=== PATIENT | male | born 1965 | race Caucasian/White ===

== ENCOUNTER 2016-09-06 10:39 | Inpatient (IN) | payer OTHER ==
[~2016-09-06] VITALS: Ht 166.4 cm; Wt 54.9 kg
[2016-09-06 11:54] LABS: BASO % 0 % (0-3); EOS % 1 % (0-3); HEMOGLOBIN 14.2 g/dL (13.0-17.5); LYMPH # 15.1 x10^3/uL (1.0-4.8); LYMPH % 76 % (24-48); MEAN CORPUSCULAR HEMOGLOBIN 29 pg (25-35); MEAN CORPUSCULAR HGB CONC 32 g/dL (31-37); MEAN CORPUSCULAR VOLUME 90 fL (79-100); MONO % 3 % (0-9); NEUT % 21 % (31-73); PLATELET COUNT 307 x10^3/uL (140-400); RED BLOOD COUNT 4.89 x10^6/uL (4.30-5.70); RED CELL DISTRIBUTION WIDTH 13.8 % (11.5-14.5)
--- NOTE | 2016-09-06 12:10 | PHYS DOC ---
Past Medical History Past Medical History: No Pertinent History Past Surgical History: Other Additional Past Surgical Histo: L thumb, R arm Additional Information: /2 PAD Alcohol Use: Occasionally Drug Use: Marijuana Adult General Chief Complaint Chief Complaint: WEAKNESS/GENERALIZED HPI HPI Patient is a 51 year old male who presents with 4 days of weakness, decreased bowel movements, lightheadedness dizziness after getting a tick bite on his back. He denies any chest pain shortness of breath nausea vomiting or diarrhea. He denies a rash with a tick was he thinks the tick was on for less than a day and he took it off. She denies any past medical history states he was seen for a study for Alzheimer's and was told his white blood cell count was 33,000. He has not seen any way for this elevated white blood cell count. Review of Systems Review of Systems Constitutional: Denies fever or chills [] Eyes: Denies change in visual acuity, redness, or eye pain [] HENT: Denies nasal congestion or sore throat [] Respiratory: Denies cough or shortness of breath [] Cardiovascular: No additional information not addressed in HPI [] GI: Denies abdominal pain, nausea, vomiting, bloody stools or diarrhea [] : Denies dysuria or hematuria [] Musculoskeletal: Denies back pain or joint pain [] Integument: Denies rash or skin lesions [] Neurologic: Denies headache, focal weakness or sensory changes [] Endocrine: Denies polyuria or polydipsia [] Allergies Allergies Allergies Coded Allergies Type Severity Reaction Last Updated Verified No Known Drug Allergies 09/06/16 No Physical Exam Physical Exam Constitutional: Well developed, well nourished, no acute distress, non-toxic appearance. [] HENT: Normocephalic, atraumatic, bilateral external ears normal, oropharynx moist, no oral exudates, nose normal. [] Eyes: PERRLA, EOMI, conjunctiva normal, no discharge. [] Neck: Normal range of motion, no tenderness, supple, no stridor. [] Cardiovascular:Heart rate regular rhythm, no murmur [] Lungs & Thorax: Bilateral breath sounds clear to auscultation [] Abdomen: Bowel sounds normal, soft, no tenderness, no masses, no pulsatile masses. [] Skin: Warm, dry, 0.5 cm erythematous area on the right lateral flank, no rash. [ ] Back: No tenderness, no CVA tenderness. [] Extremities: No tenderness, no cyanosis, no clubbing, ROM intact, no edema. [] Neurologic: Alert and oriented X 3, normal motor function, normal sensory function, no focal deficits noted. [] Psychologic: Affect normal, judgement normal, mood normal. [] Current Patient Data Vital Signs Vital Signs Date Time Temp Pulse Resp B/P Pulse Ox O2 Delivery O2 Flow Rate FiO2 09/06/16 11:07 97.7 77 16 142/87 99 Room Air 97.7 Lab Values Laboratory Tests Test 09/06/16 11:40 09/06/16 12:20 White Blood Count 20.0x10^3/uL (4.0-11.0) H Red Blood Count 4.89x10^6/uL (4.30-5.70) Hemoglobin 14.2g/dL (13.0-17.5) Hematocrit 44.0% (39.0-53.0) Mean Corpuscular Volume 90fL (79-100) Mean Corpuscular Hemoglobin 29pg (25-35) Mean Corpuscular Hemoglobin Concent 32g/dL (31-37) Red Cell Distribution Width 13.8% (11.5-14.5) Platelet Count 307x10^3/uL (140-400) Neutrophils (%) (Auto) 21% (31-73) L Lymphocytes (%) (Auto) 76% (24-48) H Monocytes (%) (Auto) 3% (0-9) Eosinophils (%) (Auto) 1% (0-3) Basophils (%) (Auto) 0% (0-3) Neutrophils # (Auto) 4.2x10^3uL (1.8-7.7) Lymphocytes # (Auto) 15.1x10^3/uL (1.0-4.8) H Monocytes # (Auto) 0.5x10^3/uL (0.0-1.1) Eosinophils # (Auto) 0.1x10^3/uL (0.0-0.7) Basophils # (Auto) 0.0x10^3/uL (0.0-0.2) Segmented Neutrophils % 24% (35-66) L Band Neutrophils % 1% (0-9) Lymphocytes % 74% (24-48) H Atypical Lymphocytes % (Manual) 1% (0-0) H Platelet Estimate Adequate (ADEQUATE) Prothrombin Time 13.7SEC (11.7-14.0) Prothrombin Time INR 1.1 (0.8-1.1) Sodium Level 143mmol/L (136-145) Potassium Level 4.5mmol/L (3.5-5.1) Chloride Level 102mmol/L (98-107) Carbon Dioxide Level 31mmol/L (21-32) Anion Gap 10 (6-14) Blood Urea Nitrogen 18mg/dL (8-26) Creatinine 0.8mg/dL (0.7-1.3) Estimated GFR (Cockcroft-Gault) 102.3 Glucose Level 86mg/dL (70-99) Calcium Level 9.3mg/dL (8.5-10.1) Magnesium Level 1.9mg/dL (1.8-2.4) Total Bilirubin 0.3mg/dL (0.2-1.0) Direct Bilirubin < 0.1mg/dL (0.0-0.2) Aspartate Amino Transferase (AST) 19U/L (15-37) Alanine Aminotransferase (ALT) 36U/L (16-63) Alkaline Phosphatase 69U/L (46-116) Creatine Kinase 75U/L (39-308) Creatine Kinase MB (Mass) 0.9ng/mL (0.0-3.6) Creatine Kinase MB Relative Index % (0-4) Troponin I Quantitative < 0.017ng/mL (0.000-0.055) ZO-Afq-Z-Type Natriuretic Peptide 15pg/mL (0-124) Total Protein 7.7g/dL (6.4-8.2) Albumin 4.1g/dL (3.4-5.0) Lipase 152U/L (73-393) Thyroid Stimulating Hormone (TSH) 1.765uIU/mL (0.358-3.74) Urine Collection Type Unknown Urine Color Yellow Urine Clarity Clear Urine pH 6.5 Urine Specific [place] <=1.005 Urine Protein Negativemg/dL (NEG-TRACE) Urine Glucose (UA) Negativemg/dL (NEG) Urine Ketones (Stick) Negativemg/dL (NEG) Urine Blood Negative (NEG) Urine Nitrite Negative (NEG) Urine Bilirubin Negative (NEG) Urine Urobilinogen Dipstick 0.2mg/dL (0.2 mg/dL) Urine Leukocyte Esterase Negative (NEG) Urine RBC 0/HPF (0-2) Urine WBC 0/HPF (0-4) Urine Bacteria 0/HPF (0-FEW) Laboratory Tests 09/06/16 11:40 Laboratory Tests 09/06/16 11:40 EKG EKG KG shows normal sinus rhythm with rate of [address] elevations or T- wave inversions, normal axis, [place] interval Radiology/Procedures Radiology/Procedures [facility] [address] [place] [address] IMAGING REPORT Signed PATIENT: KAY MCDANIEL ACCOUNT: [id number] : 1965 LOCATION: ER AGE: 51 SEX: M EXAM STATUS: REG ER ORD. PHYSICIAN: OJY RICK MD REASON: weakness PROCEDURE: PORTABLE CHEST 1V AP chest, 09/06/2016: History: Weakness and fatigue after tic bite The heart size is normal. No pulmonary infiltrates are seen. There is no evidence of pleural fluid. There is an old healed fracture of the right clavicle. IMPRESSION: No acute cardiopulmonary abnormality is detected. DICTATED and SIGNED BY: GRACE GARCIA MD DATE: 09/06/16 1231 CC: JOY RICK MD; HINA RAYMUNDO MD ~ Impressions: Weakness Leukocytosis Course & Med Decision Making Course & Med Decision Making Pertinent Labs and Imaging studies reviewed. 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 We will admit to the hospitalist for further evaluation and treatment. Patient's in stable condition this time. Dragon Disclaimer Dragon Disclaimer This electronic medical record was generated, in whole or in part, using a voice recognition dictation system. Departure Departure Impression: Primary Impression: Weakness Disposition: 09 ADMITTED INPATIENT Admitting Physician: Lucero Waite Condition: STABLE Referrals: HINA RAYMUNDO MD (PCP) JOY RICK MD Sep 06, 2016 12:10
[2016-09-06 12:11] LABS: ANION GAP 10 (6-14); BLOOD UREA NITROGEN 18 mg/dL (8-26); CALCIUM 9.3 mg/dL (8.5-10.1); CARBON DIOXIDE 31 mmol/L (21-32); CHLORIDE 102 mmol/L (98-107); CREATININE 0.8 mg/dL (0.7-1.3); GFR 102.3; GLUCOSE 86 mg/dL (70-99); POTASSIUM 4.5 mmol/L (3.5-5.1); SODIUM 143 mmol/L (136-145)
[2016-09-06 12:14] LABS: ALBUMIN 4.1 g/dL (3.4-5.0); ALK PHOS 69 U/L (46-116); ALT (SGPT) 36 U/L (16-63); AST (SGOT) 19 U/L (15-37); DIRECT BILIRUBIN < 0.1 mg/dL (0.0-0.2); MAGNESIUM 1.9 mg/dL (1.8-2.4); TOTAL BILIRUBIN 0.3 mg/dL (0.2-1.0); TOTAL PROTEIN 7.7 g/dL (6.4-8.2)
[2016-09-06 12:16] LABS: INR 1.1 (0.8-1.1); PROTHROMBIN TIME PATIENT 13.7 SEC (11.7-14.0)
[2016-09-06 12:22] LABS: CKMB MASS 0.9 ng/mL (0.0-3.6); CREATINE KINASE 75 U/L (39-308)
[2016-09-06 12:32] LABS: BILIRUBIN,URINE NEGATIVE (NEG); GLUCOSE,URINE NEGATIVE (NEG); NITRITE,URINE NEGATIVE (NEG); PH,URINE 6.5; PROTEIN,URINE NEGATIVE (NEG-TRACE); UROBILINOGEN,URINE 0.2 mg/dL (0.2 mg/dL)
--- NOTE | 2016-09-06 12:34 | RAD ---
AP chest, 09/06/2016: History: Weakness and fatigue after tic bite The heart size is normal. No pulmonary infiltrates are seen. There is no evidence of pleural fluid. There is an old healed fracture of the right clavicle. IMPRESSION: No acute cardiopulmonary abnormality is detected.
[2016-09-06 12:41] LABS: BACTERIA,URINE 0 /HPF (0-FEW); RBC,URINE 0 /HPF (0-2); WBC,URINE 0 /HPF (0-4)
[2016-09-06 13:07] LABS: PLT ESTIMATE ADEQUATE (ADEQUATE)
--- NOTE | 2016-09-06 13:54 | EKG ---
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
--- NOTE | 2016-09-06 13:56 | EKG ---
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 RI6.01 Unconfirmed report No previous ECG available for comparison Electronically Signed On 09-11-2016 13:35:51 [employer] by Jordin Sears
[2016-09-06 16:00] VITALS: BP 132/82
[2016-09-06] MEDS ORDERED: ACETAMINOPHEN 500 MG TABLET PO PRN (16:30)
[2016-09-06] MEDS ORDERED: DIPHENHYDRAMINE HCL 25 MG CAPSULE PO PRN (16:30)
[2016-09-06] MEDS ORDERED: ONDANSETRON PF 4 MG/2 ML VIAL. IV PRN (16:30)
[2016-09-06] MEDS ORDERED: IBUPROFEN 600 MG TABLET. PO PRN (16:30)
[2016-09-06 19:52] VITALS: BP 110/78
[2016-09-06 23:32] VITALS: BP 104/70
[2016-09-07 03:06] VITALS: BP 110/73
[2016-09-07 04:40] LABS: BASO % 0 % (0-3); EOS % 1 % (0-3); HEMATOCRIT 42.4 % (39.0-53.0); LYMPH # 15.4 x10^3/uL (1.0-4.8); LYMPH % 73 % (24-48); MEAN CORPUSCULAR HEMOGLOBIN 29 pg (25-35); MEAN CORPUSCULAR HGB CONC 33 g/dL (31-37); MEAN CORPUSCULAR VOLUME 89 fL (79-100); MONO % 3 % (0-9); NEUT % 23 % (31-73); PLATELET COUNT 297 x10^3/uL (140-400); RED BLOOD COUNT 4.77 x10^6/uL (4.30-5.70); RED CELL DISTRIBUTION WIDTH 13.3 % (11.5-14.5); WHITE BLOOD COUNT 21.1 x10^3/uL (4.0-11.0)
[2016-09-07 04:55] LABS: CALCIUM 8.8 mg/dL (8.5-10.1); CREATININE 0.8 mg/dL (0.7-1.3); GFR 102.3; POTASSIUM 4.3 mmol/L (3.5-5.1)
[2016-09-07 07:00] VITALS: BP 122/80
[2016-09-07 10:44] VITALS: BP 114/92
[2016-09-07] MEDS ORDERED: NICOTINE POLACRILEX 2MG GUM PACKAGE of 12. BC PRN (10:45)
[2016-09-07] MEDS ORDERED: ONDANSETRON PF 4 MG/2 ML VIAL. IV PRN (10:45)
--- NOTE | 2016-09-07 10:50 | PDOC1 ---
History and Physical Date of Admission Date of Admission DATE: 09/07/16 TIME: 10:44 Identification/Chief Complaint Chief Complaint easy fatigability, no energy Source Source: Caregiver, Chart review, Patient History of Present Illness History of Present Illness 51 y/.o male who does not take any meds at home, prev healthy but is a heavy smoker, was concerned he had a tick bite so went to ER, He complians of easy fatigability, no energy, sleeping all the time, and unintentional weight loss (not much) even BEFORE the tick bite, He shows me the tick bit at his back. BUt his labs show WBC 20 with predom of lymphocytes, and he claims he went to a bloood test not too long ago and they refused him bec his WBC was 30K , Denies blood dyscrasia in family Past Medical History Cardiovascular: No pertinent hx Pulmonary: No pertinent hx GI: No pertinent hx Heme/Onc: No pertinent hx Hepatobiliary: No pertinent hx Psych: No pertinent hx Rheumatologic: No pertinent hx Infectious disease: No pertinent hx ENT: No pertinent hx Renal/: No pertinent hx Endocrine: No pertinent hx Dermatology: No pertinent hx Past Surgical History Past Surgical History: Other (thumb sx distant past) Family History Family History: No Significant Social History Smoke: 1 pack per day ALCOHOL: occassional Drugs: None Current Problem List Problem List Problems Medical Problems: (1) Weakness Status: Acute (2) Weakness generalized Status: Acute (3) Weakness generalized Status: Acute Problems: Current Medications Current Medications Current Medications Ondansetron HCl (Zofran) 4 mg PRN Q8HRS PRN IV NAUSEA/VOMITING; Start 09/06/16 at 16:30 Acetaminophen (Tylenol) 500 mg PRN Q6HRS PRN PO MILD PAIN / TEMP; Start at 16:30 Diphenhydramine HCl (Benadryl) 25 mg PRN QHS PRN PO INSOMNIA; Start 09/06/16 at 16:30 Ibuprofen (Motrin) 600 mg PRN Q6HRS PRN PO INFLAMMATION; Start 09/06/16 at 16:30 Allergies Allergies: Coded Allergies: No Known Drug Allergies (Unverified , 09/06/16) ROS General: YES: Fatigue, Malaise, Other (weight loss) PSYCHOLOGICAL ROS: No: Anxiety, Behavioral Disorder, Concentration difficultie , Decreased libido, Depression, Disorientation, Hallucinations, Hostility, Irritablity, Memory difficulties, Mood Swings, Obsessive thoughts, Other, Physical abuse, Sexual abuse, Sleep disturbances, Suicidal ideation Eyes: No Blurry vision, No Decreased vision, No Double vision, No Dry eyes, No Excessive tearing, No Eye Pain, No Itchy Eyes, No Loss of vision, No Other, No Photophobia, No Scotomata, No Uses contacts, No Uses glasses HEENT: No: Epistaxis, Heacaches, Hearing change, Nasal congestion, Nasal discharge, Oral lesions, Other, Sinus pain, Sneezing, Snoring, Sore Throat, Tinnitus, Vertigo, Visual Changes, Vocal changes ALLERGY AND IMMUNOLOGY: No: Hives, Insect Bite Sensitivity, Itchy/Watery Eyes, Nasal Congestion, Other, Post Nasal Drip, Seasonal Allergies Hematological and Lymphatic: No: Bleeding Problems, Blood Clots, Blood Transfusions, Brusing, Night Sweats, Other, Pallor, Swollen Lymph Nodes ENDOCRINE: No: Breast Changes, Galactorrhea, Hair Pattern Changes, Hot Flashes , Malaise/lethargy, Mood Swings, Other, Palpitations, Polydipsia/polyuria, Skin Changes, Temperature Intolerance, Unexpected Weight Changes Breast: No New/Changing Breast Lumps, No Nipple changes, No Nipple discharge, No Other Respiratory: No: Cough, Hemoptysis, Orthopnea, Other, Pleuritic Pain, SOB with excertion, Shortness of breath, Sputum Changes, Stridor, Tachypnea, Wheezing Cardiovascular: No Chest Pain, No Edema, No Lt Headedness, No Orthopnea, No Other, No Palpitations, No Paroxysmal Noc. Dyspnea Gastrointestinal: No Abdominal Pain, No Constipation, No Diarrhea, No Hematochezia, No Melena, No Nausea, No Other, No Vomiting Genitourinary: No , No , No , No , No , No , No , No Discharge, No Dysuria, No Flank Pain, No Frequency, No Hematuria, No Incontinence, No Other, No Pain, No Retention, No Urgency Musculoskeletal: No Gait Disturbance, No Joint Pain, No Joint Stiffness, No Joint Swelling, No Muscle Pain, No Muscular Weakness, No Other, No Pain In:, No Swelling In: Neurological: No Behavorial Changes, No Bowel/Bladder ControlChng, No Confusion , No Dizziness, No Gait Disturbance, No Headaches, No Impaired Coord/balance, No Memory Loss, No Numbness/Tingling, No Other, No Seizures, No Speech Problems , No Tremors, No Visual Changes, No Weakness Skin: No Acne, No Dry Skin, No Eczema, No Hair Changes, No Lumps, No Mole Changes, No Mottling, No Nail Changes, No Other, No Pruritus, No Rash, No Skin Lesion Changes Physical Exam General: Alert, Oriented X3, Cooperative, No acute distress HEENT: Atraumatic, EOMI Lungs: Clear to auscultation, Normal air movement Heart: S1S2, RRR, no thrills, no rubs, no gallops Cardiovascular: S1, S2 Breasts: Normal Abdomen: Normal bowel sounds Male Genitals Exam: normal genitalia Rectal Exam: not examined Extremities: No clubbing, No cyanosis, No edema, Normal pulses, No tenderness/ swelling Skin: No rashes, No breakdown, No significant lesion Neuro: Normal gait, Normal speech, Strength at 5/5 X4 ext, Normal tone, Sensation intact, Cranial nerves 3-12 NL, Reflexes 2+ Psych/Mental Status: Mental status NL, Mood NL Vitals Vitals Vital Signs Date Time Temp Pulse Resp B/P Pulse Ox O2 Delivery O2 Flow Rate FiO2 09/07/16 07:00 97.9 75 18 122/80 98 Room Air 97.9 Labs Labs Laboratory Tests Test 09/06/16 11:40 09/06/16 12:20 09/07/16 04:12 White Blood Count 20.0x10^3/uL (4.0-11.0) 21.1x10^3/uL (4.0-11.0) Red Blood Count 4.89x10^6/uL (4.30-5.70) 4.77x10^6/uL (4.30-5.70) Hemoglobin 14.2g/dL (13.0-17.5) 14.0g/dL (13.0-17.5) Hematocrit 44.0% (39.0-53.0) 42.4% (39.0-53.0) Mean Corpuscular Volume 90fL (79-100) 89fL (79-100) Mean Corpuscular Hemoglobin 29pg (25-35) 29pg (25-35) Mean Corpuscular Hemoglobin Concent 32g/dL (31-37) 33g/dL (31-37) Red Cell Distribution Width 13.8% (11.5-14.5) 13.3% (11.5-14.5) Platelet Count 307x10^3/uL (140-400) 297x10^3/uL (140-400) Neutrophils (%) (Auto) 21% (31-73) 23% (31-73) Lymphocytes (%) (Auto) 76% (24-48) 73% (24-48) Monocytes (%) (Auto) 3% (0-9) 3% (0-9) Eosinophils (%) (Auto) 1% (0-3) 1% (0-3) Basophils (%) (Auto) 0% (0-3) 0% (0-3) Neutrophils # (Auto) 4.2x10^3uL (1.8-7.7) 4.9x10^3uL (1.8-7.7) Lymphocytes # (Auto) 15.1x10^3/uL (1.0-4.8) 15.4x10^3/uL (1.0-4.8) Monocytes # (Auto) 0.5x10^3/uL (0.0-1.1) 0.6x10^3/uL (0.0-1.1) Eosinophils # (Auto) 0.1x10^3/uL (0.0-0.7) 0.3x10^3/uL (0.0-0.7) Basophils # (Auto) 0.0x10^3/uL (0.0-0.2) 0.0x10^3/uL (0.0-0.2) Segmented Neutrophils % 24% (35-66) Band Neutrophils % 1% (0-9) Lymphocytes % 74% (24-48) Atypical Lymphocytes % (Manual) 1% (0-0) Platelet Estimate Adequate (ADEQUATE) Prothrombin Time 13.7SEC (11.7-14.0) Prothromb Time International Ratio 1.1 (0.8-1.1) Sodium Level 143mmol/L (136-145) 142mmol/L (136-145) Potassium Level 4.5mmol/L (3.5-5.1) 4.3mmol/L (3.5-5.1) Chloride Level 102mmol/L (98-107) 105mmol/L (98-107) Carbon Dioxide Level 31mmol/L (21-32) 31mmol/L (21-32) Anion Gap 10 (6-14) 6 (6-14) Blood Urea Nitrogen 18mg/dL (8-26) 18mg/dL (8-26) Creatinine 0.8mg/dL (0.7-1.3) 0.8mg/dL (0.7-1.3) Estimated GFR (Cockcroft-Gault) 102.3 102.3 Glucose Level 86mg/dL (70-99) 93mg/dL (70-99) Calcium Level 9.3mg/dL (8.5-10.1) 8.8mg/dL (8.5-10.1) Magnesium Level 1.9mg/dL (1.8-2.4) Total Bilirubin 0.3mg/dL (0.2-1.0) Direct Bilirubin < 0.1mg/dL (0.0-0.2) Aspartate Amino Transf (AST/SGOT) 19U/L (15-37) Alanine Aminotransferase (ALT/SGPT) 36U/L (16-63) Alkaline Phosphatase 69U/L (46-116) Creatine Kinase 75U/L (39-308) Creatine Kinase MB (Mass) 0.9ng/mL (0.0-3.6) Creatine Kinase MB Relative Index % (0-4) Troponin I Quantitative < 0.017ng/mL (0.000-0.055) IQ-Dwc-O-Type Natriuretic Peptide 15pg/mL (0-124) Total Protein 7.7g/dL (6.4-8.2) Albumin 4.1g/dL (3.4-5.0) Lipase 152U/L (73-393) Thyroid Stimulating Hormone (TSH) 1.765uIU/mL (0.358-3.74) Urine Collection Type Unknown Urine Color Yellow Urine Clarity Clear Urine pH 6.5 Urine Specific [place] <=1.005 Urine Protein Negativemg/dL (NEG-TRACE) Urine Glucose (UA) Negativemg/dL (NEG) Urine Ketones (Stick) Negativemg/dL (NEG) Urine Blood Negative (NEG) Urine Nitrite Negative (NEG) Urine Bilirubin Negative (NEG) Urine Urobilinogen Dipstick 0.2mg/dL (0.2 mg/dL) Urine Leukocyte Esterase Negative (NEG) Urine RBC 0/HPF (0-2) Urine WBC 0/HPF (0-4) Urine Bacteria 0/HPF (0-FEW) Laboratory Tests Test 09/06/16 11:40 09/06/16 12:20 09/07/16 04:12 White Blood Count 20.0x10^3/uL (4.0-11.0) 21.1x10^3/uL (4.0-11.0) Red Blood Count 4.89x10^6/uL (4.30-5.70) 4.77x10^6/uL (4.30-5.70) Hemoglobin 14.2g/dL (13.0-17.5) 14.0g/dL (13.0-17.5) Hematocrit 44.0% (39.0-53.0) 42.4% (39.0-53.0) Mean Corpuscular Volume 90fL (79-100) 89fL (79-100) Mean Corpuscular Hemoglobin 29pg (25-35) 29pg (25-35) Mean Corpuscular Hemoglobin Concent 32g/dL (31-37) 33g/dL (31-37) Red Cell Distribution Width 13.8% (11.5-14.5) 13.3% (11.5-14.5) Platelet Count 307x10^3/uL (140-400) 297x10^3/uL (140-400) Neutrophils (%) (Auto) 21% (31-73) 23% (31-73) Lymphocytes (%) (Auto) 76% (24-48) 73% (24-48) Monocytes (%) (Auto) 3% (0-9) 3% (0-9) Eosinophils (%) (Auto) 1% (0-3) 1% (0-3) Basophils (%) (Auto) 0% (0-3) 0% (0-3) Neutrophils # (Auto) 4.2x10^3uL (1.8-7.7) 4.9x10^3uL (1.8-7.7) Lymphocytes # (Auto) 15.1x10^3/uL (1.0-4.8) 15.4x10^3/uL (1.0-4.8) Monocytes # (Auto) 0.5x10^3/uL (0.0-1.1) 0.6x10^3/uL (0.0-1.1) Eosinophils # (Auto) 0.1x10^3/uL (0.0-0.7) 0.3x10^3/uL (0.0-0.7) Basophils # (Auto) 0.0x10^3/uL (0.0-0.2) 0.0x10^3/uL (0.0-0.2) Segmented Neutrophils % 24% (35-66) Band Neutrophils % 1% (0-9) Lymphocytes % 74% (24-48) Atypical Lymphocytes % (Manual) 1% (0-0) Platelet Estimate Adequate (ADEQUATE) Prothrombin Time 13.7SEC (11.7-14.0) Prothromb Time International Ratio 1.1 (0.8-1.1) Sodium Level 143mmol/L (136-145) 142mmol/L (136-145) Potassium Level 4.5mmol/L (3.5-5.1) 4.3mmol/L (3.5-5.1) Chloride Level 102mmol/L (98-107) 105mmol/L (98-107) Carbon Dioxide Level 31mmol/L (21-32) 31mmol/L (21-32) Anion Gap 10 (6-14) 6 (6-14) Blood Urea Nitrogen 18mg/dL (8-26) 18mg/dL (8-26) Creatinine 0.8mg/dL (0.7-1.3) 0.8mg/dL (0.7-1.3) Estimated GFR (Cockcroft-Gault) 102.3 102.3 Glucose Level 86mg/dL (70-99) 93mg/dL (70-99) Calcium Level 9.3mg/dL (8.5-10.1) 8.8mg/dL (8.5-10.1) Magnesium Level 1.9mg/dL (1.8-2.4) Total Bilirubin 0.3mg/dL (0.2-1.0) Direct Bilirubin < 0.1mg/dL (0.0-0.2) Aspartate Amino Transf (AST/SGOT) 19U/L (15-37) Alanine Aminotransferase (ALT/SGPT) 36U/L (16-63) Alkaline Phosphatase 69U/L (46-116) Creatine Kinase 75U/L (39-308) Creatine Kinase MB (Mass) 0.9ng/mL (0.0-3.6) Creatine Kinase MB Relative Index % (0-4) Troponin I Quantitative < 0.017ng/mL (0.000-0.055) CO-Yzi-U-Type Natriuretic Peptide 15pg/mL (0-124) Total Protein 7.7g/dL (6.4-8.2) Albumin 4.1g/dL (3.4-5.0) Lipase 152U/L (73-393) Thyroid Stimulating Hormone (TSH) 1.765uIU/mL (0.358-3.74) Urine Collection Type Unknown Urine Color Yellow Urine Clarity Clear Urine pH 6.5 Urine Specific [place] <=1.005 Urine Protein Negativemg/dL (NEG-TRACE) Urine Glucose (UA) Negativemg/dL (NEG) Urine Ketones (Stick) Negativemg/dL (NEG) Urine Blood Negative (NEG) Urine Nitrite Negative (NEG) Urine Bilirubin Negative (NEG) Urine Urobilinogen Dipstick 0.2mg/dL (0.2 mg/dL) Urine Leukocyte Esterase Negative (NEG) Urine RBC 0/HPF (0-2) Urine WBC 0/HPF (0-4) Urine Bacteria 0/HPF (0-FEW) VTE Prophylaxis Ordered VTE Prophylaxis Devices: Yes VTE Pharmacological Prophylaxi: Yes Assessment/Plan Assessment/Plan 1. Leukocytosis with predom of lymphocytes - difftls include the leukemias - for bone marrow biopsy [facility] - I have consulted heme onc 2. No evidence of clinical lyme dse - so I held off on tx with doxy 3. SMOker, heavy - nicotine patch and gum D w pt and FIDEL MILLARD Sep 07, 2016 10:49
[2016-09-07] MEDS ORDERED: CONTRAST GIVEN MC PRN (11:00)
[2016-09-07] MEDS ORDERED: IOHEXOL 300 MG/ML 75 ML VIAL IV ONE ×2 (11:00→11:15)
[2016-09-07] MEDS ORDERED: IOHEXOL 240 MG/ML 50ML VIAL. PO ONE ×2 (11:00→11:15)
--- NOTE | 2016-09-07 12:31 | PDOC ---
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
[2016-09-07] MEDS: NICOTINE 21MG PATCH. TD SCH (14:25)
[2016-09-07 14:49] VITALS: BP 126/83
--- NOTE | 2016-09-07 15:02 | RAD ---
CT of the chest, abdomen and pelvis with contrast, 09/07/2016: History: Weight loss, smoker Multidetector CT imaging was performed following oral and IV administration of contrast. No pulmonary mass or infiltrate is seen. There is no evidence of pleural fluid. No mediastinal or hilar adenopathy is evident. The thoracic aorta is unremarkable. No hepatic abnormality is seen. The gallbladder is unremarkable. There is no evidence of a pancreatic mass. The spleen is of normal size. No renal or adrenal abnormality is detected. Mild aortoiliac calcific plaquing is present without evidence of aneurysm. No retroperitoneal or mesenteric adenopathy is seen. A couple of small extraluminal iliac lymph nodes are seen without evidence of pathologic enlargement. There is a moderate amount of stool scattered throughout the colon. The small bowel loops are unremarkable. No free fluid is evident in the abdomen or pelvis. There is a grade 1 spondylolisthesis at L4-5 with severe degenerative disc disease at that level. There are moderate degenerative changes at the L5-S1 disc level. IMPRESSION: 1. No acute abnormality is identified in the chest, abdomen or pelvis. 2. Moderate degenerative change in the lower lumbar spine with a grade 1 spondylolisthesis at L4-5. PQRS Compliance Statement: One or more of the following individualized dose reduction techniques were utilized for this examination: 1. Automated exposure control 2. Adjustment of the mA and/or kV according to patient size 3. Use of iterative reconstruction technique
[2016-09-07 19:00] VITALS: BP 130/70
[2016-09-07 23:00] VITALS: BP 114/78
[2016-09-08 03:14] VITALS: BP 106/72
--- NOTE | 2016-09-08 03:52 | CONS ---
DATE OF CONSULTATION: 09/07/2016 REQUESTING PHYSICIAN: Dr. Kanika Waite. REASON FOR CONSULTATION: Leukocytosis with elevated lymphocytes. HISTORY OF PRESENT ILLNESS: The patient is a 51-year-old gentleman who reports having had leukocytosis since 06/2016. He reports that he went to participate in a research study and his routine CBC revealed that his white cells were 30,000 and hence he was screened out for participation. He did not have medical insurance and he did not seek any further advice. He was concerned that he had a tick bite and hence he went to the Emergency Room on 09/06/2016. He had complaints of easy fatigability, poor energy, spending a lot of time sleeping and unintentional weight loss of about 9 pounds in 3 months and he was noted to have leukocytosis on 09/06/2016 with a WBC of 20.0 and 43343 lymphocytes and hence he was admitted for further evaluation. He denies any history of lymphadenopathy, no history of night sweats. No nose bleeds or gum bleeding. No hematemesis, melena, hematochezia, no hemoptysis or hematuria. PAST MEDICAL HISTORY: He reports having had leukocytosis since 06/2016. FAMILY HISTORY: Negative for malignancy. No history of lymphoma or leukemia. SOCIAL HISTORY: He has history of smoking 1 pack of cigarettes per day since the age of 11. He drinks alcohol occasionally. REVIEW OF SYSTEMS: A 12-point review of system was performed. Pertinent positives are mentioned in the history of present illness. Rest of the system review is negative. PHYSICAL EXAMINATION: GENERAL APPEARANCE: The patient is a 51-year-old gentleman who is in no acute cardiorespiratory distress. VITAL SIGNS: Blood pressure 114/92, temperature 97.9. HEENT: Atraumatic, normocephalic. Eyes: No icterus. NECK: Supple. CHEST: Bilaterally symmetrical. HEART: S1, S2 normal. ABDOMEN: Soft, nontender. CENTRAL NERVOUS SYSTEM: No focal deficits. LYMPHATICS: No lymphadenopathy. SKIN: No rashes. PSYCHOLOGIC: Mood and affect are appropriate. MUSCULOSKELETAL: No joint effusions. LYMPHATICS: No lymphadenopathy. LABORATORY DATA: From 09/06/2016, WBC 20, hemoglobin 14.2, platelet count 307, absolute lymphocytic count 15.1. Peripheral smear reveals evidence of atypical lymphocytes. Sodium 143 potassium 4.5, chloride 102, creatinine 0.8, calcium 9.3, magnesium 1.9, total bilirubin 0.3, AST 19, ALT 36, alkaline phosphatase 69, total protein 7.7, albumin 4.1, lipase 152. TSH 1.765. RADIOLOGICAL STUDIES: Chest x-ray on 09/06/2016 is unremarkable. IMPRESSION AND PLAN: 1. Leukocytosis with evidence of elevated lymphocytes and presence of atypical lymphocytes is concerning for chronic lymphocytic leukemia. His WBC count on 09/06/2016 was 20,000 with an absolute lymphocyte count of 15,100. Hemoglobin and platelets were normal, but there is evidence of atypical lymphocytes. I will proceed with further workup with a bone marrow aspiration and biopsy to evaluate for chronic lymphocytic leukemia/lymphoproliferative disorder. I discussed in detail with the patient and his family and all his questions were answered. Even if he is diagnosed with chronic lymphocytic leukemia, he would not require any chemotherapy at this point as clinically this would be consistent with stage 0 chronic lymphocytic leukemia. 2. Weight loss, fatigue and generalized weakness. He has history of heavy smoking. I will obtain CT chest, abdomen and pelvis to make sure he does not have any underlying malignancy. 3. Cigarette smoking. I have advised him to quit smoking. CALVIN ELLINGTON MD DR: ROBERTA/frank JOB#: [id number] / [id number] FIDEL Melendez MD MTDD
[2016-09-08 07:00] VITALS: BP 116/75
[2016-09-08] MEDS: NICOTINE 21MG PATCH. TD SCH (08:20)
[2016-09-08 08:44] LABS: BASO % 0 % (0-3); EOS % 1 % (0-3); HEMATOCRIT 41.6 % (39.0-53.0); HEMOGLOBIN 13.4 g/dL (13.0-17.5); LYMPH # 14.3 x10^3/uL (1.0-4.8); LYMPH % 74 % (24-48); MEAN CORPUSCULAR HEMOGLOBIN 29 pg (25-35); MEAN CORPUSCULAR HGB CONC 32 g/dL (31-37); MEAN CORPUSCULAR VOLUME 91 fL (79-100); MONO % 3 % (0-9); NEUT % 22 % (31-73); PLATELET COUNT 268 x10^3/uL (140-400); RED BLOOD COUNT 4.59 x10^6/uL (4.30-5.70); RED CELL DISTRIBUTION WIDTH 13.4 % (11.5-14.5); WHITE BLOOD COUNT 19.4 x10^3/uL (4.0-11.0)
--- NOTE | 2016-09-08 08:51 | PDOC ---
PROGRESS NOTES Subjective Subjective c/c - f/u of Leukocytosis with evidence of elevated lymphocytes Objective Objective Vital Signs Date Time Temp Pulse Resp B/P Pulse Ox O2 Delivery O2 Flow Rate FiO2 09/08/16 07:00 97.5 75 18 116/75 98 Room Air 97.5 Intake and Output 09/08/16 07:00 Intake Total 600 ml Output Total 400 ml Balance 200 ml Intake Oral 600 ml Output Urine Total 400 ml # Voids 2 Physical Exam Heart: Normal S1, Normal S2 General: Alert, Oriented X3 Lungs: Clear to auscultation Neuro: Normal speech Psych/Mental Status: Mental status NL Assessment Assessment Problems Medical Problems: (1) Weakness Status: Acute (2) Weakness generalized Status: Acute (3) Weakness generalized Status: Acute IMPRESSION AND PLAN: 1. Leukocytosis with evidence of elevated lymphocytes and presence of atypical lymphocytes is concerning for chronic lymphocytic leukemia. His WBC count on 09/06/2016 was 20,000 with an absolute lymphocyte count of 15,100. Hemoglobin and platelets were normal, but there is evidence of atypical lymphocytes. I will proceed with further workup with a bone marrow aspiration and biopsy to evaluate for chronic lymphocytic leukemia/lymphoproliferative disorder. f/u with me in 3 weeks for results. 2. Weight loss, fatigue and generalized weakness. CT chest, abdomen and pelvis 09/07/16 is negative for malignancy. 3. Cigarette smoking. I have advised him to quit smoking. Comment Review of Relevant I have reviewed the following items sony (where applicable) has been applied. Labs Laboratory Tests Test 09/06/16 11:40 09/06/16 12:20 09/07/16 04:12 09/08/16 08:35 White Blood Count 20.0x10^3/uL (4.0-11.0) 21.1x10^3/uL (4.0-11.0) 19.4x10^3/uL (4.0-11.0) Red Blood Count 4.89x10^6/uL (4.30-5.70) 4.77x10^6/uL (4.30-5.70) 4.59x10^6/uL (4.30-5.70) Hemoglobin 14.2g/dL (13.0-17.5) 14.0g/dL (13.0-17.5) 13.4g/dL (13.0-17.5) Hematocrit 44.0% (39.0-53.0) 42.4% (39.0-53.0) 41.6% (39.0-53.0) Mean Corpuscular Volume 90fL (79-100) 89fL (79-100) 91fL (79-100) Mean Corpuscular Hemoglobin 29pg (25-35) 29pg (25-35) 29pg (25-35) Mean Corpuscular Hemoglobin Concent 32g/dL (31-37) 33g/dL (31-37) 32g/dL (31-37) Red Cell Distribution Width 13.8% (11.5-14.5) 13.3% (11.5-14.5) 13.4% (11.5-14.5) Platelet Count 307x10^3/uL (140-400) 297x10^3/uL (140-400) 268x10^3/uL (140-400) Neutrophils (%) (Auto) 21% (31-73) 23% (31-73) 22% (31-73) Lymphocytes (%) (Auto) 76% (24-48) 73% (24-48) 74% (24-48) Monocytes (%) (Auto) 3% (0-9) 3% (0-9) 3% (0-9) Eosinophils (%) (Auto) 1% (0-3) 1% (0-3) 1% (0-3) Basophils (%) (Auto) 0% (0-3) 0% (0-3) 0% (0-3) Neutrophils # (Auto) 4.2x10^3uL (1.8-7.7) 4.9x10^3uL (1.8-7.7) 4.3x10^3uL (1.8-7.7) Lymphocytes # (Auto) 15.1x10^3/uL (1.0-4.8) 15.4x10^3/uL (1.0-4.8) 14.3x10^3/uL (1.0-4.8) Monocytes # (Auto) 0.5x10^3/uL (0.0-1.1) 0.6x10^3/uL (0.0-1.1) 0.5x10^3/uL (0.0-1.1) Eosinophils # (Auto) 0.1x10^3/uL (0.0-0.7) 0.3x10^3/uL (0.0-0.7) 0.2x10^3/uL (0.0-0.7) Basophils # (Auto) 0.0x10^3/uL (0.0-0.2) 0.0x10^3/uL (0.0-0.2) 0.0x10^3/uL (0.0-0.2) Segmented Neutrophils % 24% (35-66) Band Neutrophils % 1% (0-9) Lymphocytes % 74% (24-48) Atypical Lymphocytes % (Manual) 1% (0-0) Platelet Estimate Adequate (ADEQUATE) Prothrombin Time 13.7SEC (11.7-14.0) Prothromb Time International Ratio 1.1 (0.8-1.1) Sodium Level 143mmol/L (136-145) 142mmol/L (136-145) Potassium Level 4.5mmol/L (3.5-5.1) 4.3mmol/L (3.5-5.1) Chloride Level 102mmol/L (98-107) 105mmol/L (98-107) Carbon Dioxide Level 31mmol/L (21-32) 31mmol/L (21-32) Anion Gap 10 (6-14) 6 (6-14) Blood Urea Nitrogen 18mg/dL (8-26) 18mg/dL (8-26) Creatinine 0.8mg/dL (0.7-1.3) 0.8mg/dL (0.7-1.3) Estimated GFR (Cockcroft-Gault) 102.3 102.3 Glucose Level 86mg/dL (70-99) 93mg/dL (70-99) Calcium Level 9.3mg/dL (8.5-10.1) 8.8mg/dL (8.5-10.1) Magnesium Level 1.9mg/dL (1.8-2.4) Total Bilirubin 0.3mg/dL (0.2-1.0) Direct Bilirubin < 0.1mg/dL (0.0-0.2) Aspartate Amino Transf (AST/SGOT) 19U/L (15-37) Alanine Aminotransferase (ALT/SGPT) 36U/L (16-63) Alkaline Phosphatase 69U/L (46-116) Creatine Kinase 75U/L (39-308) Creatine Kinase MB (Mass) 0.9ng/mL (0.0-3.6) Creatine Kinase MB Relative Index % (0-4) Troponin I Quantitative < 0.017ng/mL (0.000-0.055) VT-Dne-D-Type Natriuretic Peptide 15pg/mL (0-124) Total Protein 7.7g/dL (6.4-8.2) Albumin 4.1g/dL (3.4-5.0) Lipase 152U/L (73-393) Thyroid Stimulating Hormone (TSH) 1.765uIU/mL (0.358-3.74) Urine Collection Type Unknown Urine Color Yellow Urine Clarity Clear Urine pH 6.5 Urine Specific [place] <=1.005 Urine Protein Negativemg/dL (NEG-TRACE) Urine Glucose (UA) Negativemg/dL (NEG) Urine Ketones (Stick) Negativemg/dL (NEG) Urine Blood Negative (NEG) Urine Nitrite Negative (NEG) Urine Bilirubin Negative (NEG) Urine Urobilinogen Dipstick 0.2mg/dL (0.2 mg/dL) Urine Leukocyte Esterase Negative (NEG) Urine RBC 0/HPF (0-2) Urine WBC 0/HPF (0-4) Urine Bacteria 0/HPF (0-FEW) Laboratory Tests Test 09/08/16 08:35 White Blood Count 19.4x10^3/uL (4.0-11.0) Red Blood Count 4.59x10^6/uL (4.30-5.70) Hemoglobin 13.4g/dL (13.0-17.5) Hematocrit 41.6% (39.0-53.0) Mean Corpuscular Volume 91fL (79-100) Mean Corpuscular Hemoglobin 29pg (25-35) Mean Corpuscular Hemoglobin Concent 32g/dL (31-37) Red Cell Distribution Width 13.4% (11.5-14.5) Platelet Count 268x10^3/uL (140-400) Neutrophils (%) (Auto) 22% (31-73) Lymphocytes (%) (Auto) 74% (24-48) Monocytes (%) (Auto) 3% (0-9) Eosinophils (%) (Auto) 1% (0-3) Basophils (%) (Auto) 0% (0-3) Neutrophils # (Auto) 4.3x10^3uL (1.8-7.7) Lymphocytes # (Auto) 14.3x10^3/uL (1.0-4.8) Monocytes # (Auto) 0.5x10^3/uL (0.0-1.1) Eosinophils # (Auto) 0.2x10^3/uL (0.0-0.7) Basophils # (Auto) 0.0x10^3/uL (0.0-0.2) Medications Current Medications Ondansetron HCl (Zofran) 4 mg PRN Q8HRS PRN IV NAUSEA/VOMITING; Start 09/06/16 at 16:30; Stop 09/07/16 at 10:46; Status DC Acetaminophen (Tylenol) 500 mg PRN Q6HRS PRN PO MILD PAIN / TEMP Last administered on 09/07/16 17:31; Start 09/06/16 at 16:30 Diphenhydramine HCl (Benadryl) 25 mg PRN QHS PRN PO INSOMNIA; Start 09/06/16 at 16:30 Ibuprofen (Motrin) 600 mg PRN Q6HRS PRN PO INFLAMMATION; Start 09/06/16 at 16:30 Ondansetron HCl (Zofran) 4 mg PRN Q6HRS PRN IV NAUSEA/VOMITING; Start 09/07/16 at 10:45 Nicotine (Nicoderm Cq 21mg) 1 patch DAILY TD Last administered on 09/08/16 08: 20; Start 09/07/16 at 10:45 Nicotine Polacrilex (Nicorette Gum) 1 each PRN Q1HR PRN BC SMOKING CESSATION; Start 09/07/16 at 10:45 Iohexol (Omnipaque 300 Mg/ml) 75 ml 1X ONCE IV Last administered on 09/07/16 12:57; Start 09/07/16 at 11:15; Stop 09/07/16 at 11:16; Status DC Iohexol (Omnipaque 240 Mg/ml) 30 ml 1X ONCE PO Last administered on 09/07/16t 12:57; Start 09/07/16 at 11:15; Stop 09/07/16 at 11:16; Status DC Iohexol (Omnipaque 240 Mg/ml) 30 ml 1X ONCE PO ; Start 09/07/16 at 11:00; Stop 09/07/16 at 11:00; Status DC Iohexol (Omnipaque 300 Mg/ml) 75 ml 1X ONCE IV ; Start 09/07/16 at 11:00; Stop 09/07/16 at 11:00; Status DC Info (Do NOT chart on this entry -- for MONITORING) 1 each PRN DAILY PRN MC SEE COMMENTS; Start 09/07/16 at 11:00; Stop 09/09/16 at 10:59 Vitals/I & O Vital Sign - Last 24 Hours 09/07/16 09/07/16 09/07/16 09/07/16 10:44 14:49 19:00 23:00 Temp 97.8 98.4 97.5 97.5 97.8 98.4 97.5 97.5 Pulse 89 81 86 79 Resp 18 18 18 18 B/P 114/92 126/83 130/70 114/78 Pulse Ox 98 100 98 98 O2 Delivery Room Air Room Air Room Air Room Air 09/08/16 09/08/16 03:14 07:00 Temp 97.9 97.5 97.9 97.5 Pulse 78 75 Resp 18 18 B/P 106/72 116/75 Pulse Ox 98 98 O2 Delivery Room Air Room Air Intake and Output 09/07/16 09/07/16 09/08/16 15:00 23:00 07:00 Intake Total 600 ml Output Total 400 ml Balance 200 ml CALVIN ELLINGTON MD Sep 08, 2016 08:51
[2016-09-08] MEDS ORDERED: LIDOCAINE 1% / SOD BICARB 8.4% 20 ML VIAL. IJ ONE ×2 (10:07→11:00)
[2016-09-08] MEDS ORDERED: FENTANYL PF 250 MCG/5 ML VIAL. ONE (10:30)
[2016-09-08] MEDS ORDERED: MIDAZOLAM HCL/PF 5 MG/5 ML VIAL ONE (10:30)
[2016-09-08 10:46] VITALS: BP 116/75
[2016-09-08 10:51] VITALS: BP 94/65
[2016-09-08 10:54] VITALS: BP 105/67
[2016-09-08] MEDS ORDERED: MIDAZOLAM HCL/PF 5 MG/5 ML VIAL IV ONE (11:00)
[2016-09-08] MEDS ORDERED: FENTANYL PF 250 MCG/5 ML VIAL. IV ONE (11:00)
--- NOTE | 2016-09-08 11:09 | PDOC ---
MODERATE SEDATION ASSESSMENT RISKS/ALTERNATIVES Risks/Alternatives Risks and alternatives of this type of sedation and procedure discussed with: RISK/ALTERNATIVES: Patient H & P ON CHART H & P H & P on chart and reviewed for co-morbid conditions and appropriate labs. H&P ON CHART: Yes STATUS PREG STATUS ASSESSED: Yes MEDS/ALLERGIES REVIEWED Meds/Allergies Reviewed Medications and Allergies including time and route of recently administered narcotics and sedatives. MEDS/ALLERGIES REVIEWED: Yes ASA RATING ASA RATING: II AIRWAY ASSESSMENT Airway Assessment Airway patency, oral function limitations, presence of caps, crowns, dentures, partials, and ability to extend neck assessed. AIRWAY ASSESSMENT: Yes MALLAMPATI SCORE MALLAMPATI SCORE: II PRE-SEDATION ASSESSMENT PRE-SEDATION ASSESSMENT: Yes MELINDA ABURTO MD Sep 08, 2016 11:09
--- NOTE | 2016-09-08 11:10 | PDOC ---
BRIEF OPERATIVE NOTE Pre-Op Diagnosis leukocytosis Post-Op Diagnosis same Procedure Performed CT Bone Marrow Biopsy Surgeon Adriel Anesthesia Type: Conscious Sedation Specimens Obtained 2 x 2cc aspirates and 1 x [address] Bone Marrow Biopsy MELINDA ABURTO MD Sep 08, 2016 11:10
[2016-09-08] MEDS ORDERED: DOXY100C2 PO (11:25)
--- NOTE | 2016-09-08 11:27 | PDOC3 ---
Discharge Summary Visit Information Date of Admission: Sep 07, 2016 Date of Discharge: Sep 08, 2016 Admitting Diagnosis Comment: [facility] CLL s/p BM biopsy ) Tick bite Final Diagnosis Problems Medical Problems: (1) CLL (chronic lymphocytic leukemia) Status: Acute (2) Weakness Status: Acute (3) Weakness generalized Status: Acute (4) Weakness generalized Status: Acute Brief Hospital Course Allergies Allergies Coded Allergies Type Severity Reaction Last Updated Verified No Known Drug Allergies 09/06/16 No Vital Signs Vital Signs Date Time Temp Pulse Resp B/P Pulse Ox O2 Delivery O2 Flow Rate FiO2 09/08/16 10:54 74 12 100 Nasal Cannula 2.0 09/08/16 07:00 97.5 116/75 97.5 Lab Results Laboratory Tests Test 09/06/16 11:40 09/06/16 12:20 09/07/16 04:12 09/08/16 08:35 White Blood Count 20.0x10^3/uL (4.0-11.0) 21.1x10^3/uL (4.0-11.0) 19.4x10^3/uL (4.0-11.0) Red Blood Count 4.89x10^6/uL (4.30-5.70) 4.77x10^6/uL (4.30-5.70) 4.59x10^6/uL (4.30-5.70) Hemoglobin 14.2g/dL (13.0-17.5) 14.0g/dL (13.0-17.5) 13.4g/dL (13.0-17.5) Hematocrit 44.0% (39.0-53.0) 42.4% (39.0-53.0) 41.6% (39.0-53.0) Mean Corpuscular Volume 90fL (79-100) 89fL (79-100) 91fL (79-100) Mean Corpuscular Hemoglobin 29pg (25-35) 29pg (25-35) 29pg (25-35) Mean Corpuscular Hemoglobin Concent 32g/dL (31-37) 33g/dL (31-37) 32g/dL (31-37) Red Cell Distribution Width 13.8% (11.5-14.5) 13.3% (11.5-14.5) 13.4% (11.5-14.5) Platelet Count 307x10^3/uL (140-400) 297x10^3/uL (140-400) 268x10^3/uL (140-400) Neutrophils (%) (Auto) 21% (31-73) 23% (31-73) 22% (31-73) Lymphocytes (%) (Auto) 76% (24-48) 73% (24-48) 74% (24-48) Monocytes (%) (Auto) 3% (0-9) 3% (0-9) 3% (0-9) Eosinophils (%) (Auto) 1% (0-3) 1% (0-3) 1% (0-3) Basophils (%) (Auto) 0% (0-3) 0% (0-3) 0% (0-3) Neutrophils # (Auto) 4.2x10^3uL (1.8-7.7) 4.9x10^3uL (1.8-7.7) 4.3x10^3uL (1.8-7.7) Lymphocytes # (Auto) 15.1x10^3/uL (1.0-4.8) 15.4x10^3/uL (1.0-4.8) 14.3x10^3/uL (1.0-4.8) Monocytes # (Auto) 0.5x10^3/uL (0.0-1.1) 0.6x10^3/uL (0.0-1.1) 0.5x10^3/uL (0.0-1.1) Eosinophils # (Auto) 0.1x10^3/uL (0.0-0.7) 0.3x10^3/uL (0.0-0.7) 0.2x10^3/uL (0.0-0.7) Basophils # (Auto) 0.0x10^3/uL (0.0-0.2) 0.0x10^3/uL (0.0-0.2) 0.0x10^3/uL (0.0-0.2) Segmented Neutrophils % 24% (35-66) Band Neutrophils % 1% (0-9) Lymphocytes % 74% (24-48) Atypical Lymphocytes % (Manual) 1% (0-0) Platelet Estimate Adequate (ADEQUATE) Prothrombin Time 13.7SEC (11.7-14.0) Prothromb Time International Ratio 1.1 (0.8-1.1) Sodium Level 143mmol/L (136-145) 142mmol/L (136-145) Potassium Level 4.5mmol/L (3.5-5.1) 4.3mmol/L (3.5-5.1) Chloride Level 102mmol/L (98-107) 105mmol/L (98-107) Carbon Dioxide Level 31mmol/L (21-32) 31mmol/L (21-32) Anion Gap 10 (6-14) 6 (6-14) Blood Urea Nitrogen 18mg/dL (8-26) 18mg/dL (8-26) Creatinine 0.8mg/dL (0.7-1.3) 0.8mg/dL (0.7-1.3) Estimated GFR (Cockcroft-Gault) 102.3 102.3 Glucose Level 86mg/dL (70-99) 93mg/dL (70-99) Calcium Level 9.3mg/dL (8.5-10.1) 8.8mg/dL (8.5-10.1) Magnesium Level 1.9mg/dL (1.8-2.4) Total Bilirubin 0.3mg/dL (0.2-1.0) Direct Bilirubin < 0.1mg/dL (0.0-0.2) Aspartate Amino Transf (AST/SGOT) 19U/L (15-37) Alanine Aminotransferase (ALT/SGPT) 36U/L (16-63) Alkaline Phosphatase 69U/L (46-116) Creatine Kinase 75U/L (39-308) Creatine Kinase MB (Mass) 0.9ng/mL (0.0-3.6) Creatine Kinase MB Relative Index % (0-4) Troponin I Quantitative < 0.017ng/mL (0.000-0.055) EX-Kxq-W-Type Natriuretic Peptide 15pg/mL (0-124) Total Protein 7.7g/dL (6.4-8.2) Albumin 4.1g/dL (3.4-5.0) Lipase 152U/L (73-393) Thyroid Stimulating Hormone (TSH) 1.765uIU/mL (0.358-3.74) Urine Collection Type Unknown Urine Color Yellow Urine Clarity Clear Urine pH 6.5 Urine Specific [place] <=1.005 Urine Protein Negativemg/dL (NEG-TRACE) Urine Glucose (UA) Negativemg/dL (NEG) Urine Ketones (Stick) Negativemg/dL (NEG) Urine Blood Negative (NEG) Urine Nitrite Negative (NEG) Urine Bilirubin Negative (NEG) Urine Urobilinogen Dipstick 0.2mg/dL (0.2 mg/dL) Urine Leukocyte Esterase Negative (NEG) Urine RBC 0/HPF (0-2) Urine WBC 0/HPF (0-4) Urine Bacteria 0/HPF (0-FEW) Laboratory Tests Test 09/08/16 08:35 White Blood Count 19.4x10^3/uL (4.0-11.0) Red Blood Count 4.59x10^6/uL (4.30-5.70) Hemoglobin 13.4g/dL (13.0-17.5) Hematocrit 41.6% (39.0-53.0) Mean Corpuscular Volume 91fL (79-100) Mean Corpuscular Hemoglobin 29pg (25-35) Mean Corpuscular Hemoglobin Concent 32g/dL (31-37) Red Cell Distribution Width 13.4% (11.5-14.5) Platelet Count 268x10^3/uL (140-400) Neutrophils (%) (Auto) 22% (31-73) Lymphocytes (%) (Auto) 74% (24-48) Monocytes (%) (Auto) 3% (0-9) Eosinophils (%) (Auto) 1% (0-3) Basophils (%) (Auto) 0% (0-3) Neutrophils # (Auto) 4.3x10^3uL (1.8-7.7) Lymphocytes # (Auto) 14.3x10^3/uL (1.0-4.8) Monocytes # (Auto) 0.5x10^3/uL (0.0-1.1) Eosinophils # (Auto) 0.2x10^3/uL (0.0-0.7) Basophils # (Auto) 0.0x10^3/uL (0.0-0.2) Brief Hospital Course Mr. Perry is a 51 old [sex] who presented with [ ] 51 y/.o male who does not take any meds at home, prev healthy but is a heavy smoker, was concerned he had a tick bite so went to ER, He complians of easy fatigability, no energy, sleeping all the time, and unintentional weight loss (not much) even BEFORE the tick bite, He shows me the tick bit at his back. BUt his labs show WBC 20 with predom of lymphocytes, and he claims he went to a bloood test not too long ago and they refused him bec his WBC was 30K , Denies blood dyscrasia in family Discharge Information Condition at Discharge: Improved, Stable Follow Up: Weeks ([address] garcia) Disposition/Orders: D/C to Home FIDEL MILLARD MD Sep 08, 2016 11:27
[2016-09-08 12:00] VITALS: BP 119/88
--- NOTE | 2016-09-08 14:43 | RAD ---
Procedure: CT-guided bone marrow aspiration and biopsy Clinical Indication: 51-year-old with leukocytosis Sedation: Conscious sedation was administered for less than 15 minutes. The patient was monitored by a qualified independent observer throughout the time of sedation. Please refer to the medical record for exact doses of medications utilized to achieve moderate sedation. Antibiotics: None Fluoro Time: Not applicable Contrast: None Sterility: The procedure was performed in its entirety using appropriate elements of sterile technique. Consent: The procedure was explained in its entirety to the patient or the patients designated sales representative womens health by a member of the treatment team, including a discussion of the risks, benefits and commonly accepted alternatives to the procedure, as well as the expected consequences of no therapy whatsoever. Discussion of the risks included, but was not limited to, those that are most frequent and those that are rare but possibly severe or life-threatening, as well as the possibility of unforeseen complications. Technique and Findings: Following informed consent, the patient was prepped and draped in usual sterile fashion. Preliminary CT scan of the area of interest was performed. 1% Lidocaine was used to achieve local anesthesia. Under periodic CT surveillance, an 11-gauge needle was advanced through the cortex of the posterior superior iliac spine and 2 separate 2 mL marrow aspirates were obtained and preserved on site by the assistant research scientist. A single 11-gauge core biopsy specimen was then obtained and preserved in formalin. The needle was then removed and hemostasis was achieved with manual compression. Complications: No immediate Impression: 1. CT-guided bone marrow aspiration and biopsy as described PQRS Compliance Statement: One or more of the following individualized dose reduction techniques were utilized for this examination: 1. Automated exposure control 2. Adjustment of the mA and/or kV according to patient size 3. Use of iterative reconstruction technique
== END 2016-09-08 13:15 | disposition home or self-care (01) | DRG 842 ==
LOC: ER 10:39 → 6 SOUTH 15:17
PROVIDERS: ADMIT Internal Medicine; ATTEND Internal Medicine
PROC: 07DR3ZX Extraction of Iliac Bone Marrow, Percutaneous Approach, Diagnostic (ICD-10-PCS; principal; 2016-09-08)
DX: C91.10 Chronic lymphocytic leukemia of B-cell type not having achieved remission (principal); S30.860A Insect bite (nonvenomous) of lower back and pelvis, initial encounter; F17.210 Nicotine dependence, cigarettes, uncomplicated; F12.90 Cannabis use, unspecified, uncomplicated; W57.XXXA Bitten or stung by nonvenomous insect and other nonvenomous arthropods, initial encounter; Y93.89 Activity, other specified; Y92.89 Other specified places as the place of occurrence of the external cause; Y99.8 Other external cause status
CPT/HCPCS: 36415; 38221; 71010; 71260; 74177; 77012; 80048; 80076; 81001; 82553; 83690; 83735; 83880; 84443; 84484; 85007; 85027; 85610; 88184; 88185; 88237; 93005; G0364; G0379; J2250; J3010; Q9966; Q9967; 99285-25

== ENCOUNTER → 2016-11-14 | Outpatient (CLI) | payer OTHER ==
[~2016-11-14] MED LIST: DOXY100C2 PO
--- NOTE | 2016-11-14 16:55 | KCIC ---
PROCEDURE Three-view left foot HISTORY Left foot pain for 3 or 4 days. Tenderness at the distal 2nd and 3rd metatarsals. 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 Small ossicle at the medial joint. No evidence of acute fracture. No aggressive bone destruction. Alignment is maintained. Medial and lateral hallux sesamoids are bifid. Small spur or exostosis arises from the posterior malleolus of the distal tibia. Some mild cortical thickening is identified at the medial aspect of the distal shaft of the 2nd metatarsal. Adjacent cortical lucency is identified but may just represent a vascular channel. IMPRESSION 1. 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 2. Mild focal cortical thickening at the medial shaft of the distal 2nd metatarsal. In correlation with the clinical history, a small fracture, in particular a stress fracture from repetitive micro trauma, is possible. If further workup would be of benefit, recommend MRI of the metatarsals. Electronically signed by: Robe Leonard MD (November 14, 2016 16:53:47)
== END | disposition home or self-care (01) ==
LOC: KCIC 15:56
PROVIDERS: ATTEND Family Medicine
DX: M19.072 Primary osteoarthritis, left ankle and foot (principal)
CPT/HCPCS: 73630

== ENCOUNTER 2016-12-10 12:04 | Emergency (ER) | payer OTHER ==
[~2016-12-10] VITALS: Ht 165.1 cm; Wt 59.0 kg
[2016-12-10 12:33] VITALS: BP 126/80
[2016-12-10] MEDS ORDERED: TETRACAINE 0.5% OPHTH SOLUTION 4ML BOTTLE. OS ONE (12:45)
[2016-12-10] MEDS ORDERED: FLUORESCEIN OPHTH TEST STRIP. OS ONE (12:45)
[2016-12-10] MEDS ORDERED: DIPHTH,PERTUSS(ACELL),TET TOX 0.5 ML DISP.SYRIN. VAX IM ONE (13:00)
[2016-12-10] MEDS ORDERED: HYDR-971 PO (13:26)
[2016-12-10] MEDS ORDERED: ERYT1OIN6 EACHEYE (13:26)
--- NOTE | 2016-12-10 13:26 | PHYS DOC ---
Past Medical History Past Medical History: Cancer Additional Past Medical Histor: LEUKEMIA -- NO [place] Past Surgical History: Other Additional Past Surgical Histo: L thumb, R arm Alcohol Use: Occasionally Drug Use: Marijuana Adult General Chief Complaint Chief Complaint: EYE PROBLEMS HPI HPI Patient is a 51 year old male with history of leukemia who presents today with foreign body to the left eye. Patient states he was working with sand blast when some of it got into his left eye. Patient denies any vision loss. Review of Systems Review of Systems Constitutional: Denies fever or chills [] Eyes: Foreign body to the left eye HENT: Denies nasal congestion or sore throat [] Musculoskeletal: Denies back pain or joint pain [] Integument: Denies rash or skin lesions [] Neurologic: Denies headache, focal weakness or sensory changes [] Endocrine: Denies polyuria or polydipsia [] Current Medications Current Medications Current Medications Medications (Trade) Dose Ordered Sig/Clement Start Time Stop Time Status Last Admin Dose Admin Diphtheria/ Tetanus/Acell Pertussis (Boostrix) 0.5 ml ONCE ONCE 12/10/16 13:00 12/10/16 13:01 DC 12/10/16 13:08 0.5 ML Fluorescein Sodium (Ful-Dunia) 1 strip 1X ONCE 12/10/16 12:45 12/10/16 12:46 DC 12/10/16 12:45 1 STRIP Tetracaine HCl (Tetracaine) 1 drop 1X ONCE 12/10/16 12:45 12/10/16 12:46 DC 12/10/16 12:45 1 DROP Allergies Allergies Allergies Coded Allergies Type Severity Reaction Last Updated Verified No Known Drug Allergies 09/06/16 No Physical Exam Physical Exam Constitutional: Well developed, well nourished, no acute distress, non-toxic appearance. [] HENT: Normocephalic, atraumatic, bilateral external ears normal, oropharynx moist, no oral exudates, nose normal. [] Eyes: PERRLA, EOMI, patient has a rust ring on the left cornea at approximately 12:30 position, slight conjunctiva erythema, no discharge. [] Skin: Warm, dry, no erythema, no rash. [] Back: No tenderness, no CVA tenderness. [] Extremities: No tenderness, no cyanosis, no clubbing, ROM intact, no edema. [] Neurologic: Alert and oriented X 3, normal motor function, normal sensory function, no focal deficits noted. [] Psychologic: Affect normal, judgement normal, mood normal. [] Current Patient Data Vital Signs Vital Signs Date Time Temp Pulse Resp B/P (MAP) Pulse Ox O2 Delivery O2 Flow Rate FiO2 12/10/16 12:33 98.1 98 18 98 Room Air 98.1 EKG EKG [] Radiology/Procedures Radiology/Procedures [] Course & Med Decision Making Course & Med Decision Making Pertinent Labs and Imaging studies reviewed. (See chart for details) Patient has a rust ring to the left eye since yesterday. She was discharged with erythromycin, given tetanus in the ED. She is to follow-up with ux engineer tomorrow to have it removed. Dragon Disclaimer Dragon Disclaimer This electronic medical record was generated, in whole or in part, using a voice recognition dictation system. Departure Departure Impression: Primary Impression: Corneal rust ring of left eye Disposition: HOME, SELF-CARE Condition: STABLE Referrals: HINA RAYMUNDO MD (PCP) Carroll MONAHAN MD follow-up with the provided ux engineer tomorrow morning Patient Instructions: Eye - Corneal Abrasion Additional Instructions: You have a rust ring in the left eye. Kindly call the provided ux engineer or your own ux engineer tomorrow morning and have them follow-up to remove it. Use the prescribed pain medicine as needed. Use the prescribed erythromycin ointment as ordered. Scripts Hydrocodone/Apap 5-325 (NORCO 5-325 TABLET) 1 Each Tablet 1-2 TAB PO Q4-6HRS, #20 TAB Prov: JELENA REARDON APRN 12/10/16 Erythromycin Base (ERYTHROMYCIN) 3.5 Gm Oint...g. 1 FABIOLA EACHEYE Q4HRS W/A, #3.5 GM Prov: JELENA REARDON APRN 12/10/16 JELENA REARDON APRN Dec 10, 2016 13:26
== END 2016-12-10 13:32 | disposition home or self-care (01) ==
LOC: ER 12:04
DX: S05.02XA Injury of conjunctiva and corneal abrasion without foreign body, left eye, initial encounter (principal); F12.10 Cannabis abuse, uncomplicated; Z85.6 Personal history of leukemia; X58.XXXA Exposure to other specified factors, initial encounter; Y93.89 Activity, other specified; Y92.89 Other specified places as the place of occurrence of the external cause; Y99.8 Other external cause status
CPT/HCPCS: 90471; 90715; 99283-25

== ENCOUNTER 2017-01-15 05:29 | Emergency (ER) | payer OTHER ==
[~2017-01-15] VITALS: Ht 167.6 cm; Wt 54.4 kg
[~2017-01-15 05:29] MED LIST changes: +ERYT1OIN6 EACHEYE; +HYDR-971 PO
[2017-01-15 05:49] VITALS: BP 124/87
[2017-01-15] MEDS ORDERED: DIPH25CA58 PO (06:32)
--- NOTE | 2017-01-15 06:44 | ED.ADGEN ---
Past Medical History Past Medical History: Cancer Additional Past Medical Histor: LEUKEMIA -- NO [place] Past Surgical History: Other Additional Past Surgical Histo: L thumb, R arm Alcohol Use: Occasionally Drug Use: Marijuana Adult General Chief Complaint Chief Complaint: SKIN RASH/ABSCESS HPI HPI Patient is a 51 year old man, history of CLL, which is being monitored by oncology, but has not previously required treatment, who was seen by Dr. Davenport last week, and laboratory studies performed, who presents to the emergency department with a complaint of itching of his bilateral shoulders and red raised bumps on his left forearm, which have been improving and then worsening over the past week. Patient states that he first noted itching in his shoulders after he was cleaning a room and his home where there were some flooding and mice were noted. Patient denies any injuries, states he is not having any other symptoms, no respiratory complaints, no chest pain, no nausea or vomiting, no other areas of lesions or itching. He has not taken any medication prior to come to the ED for evaluation. He does not take medications regular basis. No swelling extremities, no recent travel or surgery, no other exposures, no infiltrates in his home is experiencing any issues. Patient states he is chronically fatigued, which she has discussed with his oncologist and his primary care provider. He states he also has a 6-year-old child and a 15-day- old baby at home.. Review of Systems Review of Systems Constitutional: Denies fever or chills. [] Eyes: Denies change in visual acuity. [] HENT: Denies nasal congestion or sore throat. [] Respiratory: Denies cough or shortness of breath. [] Cardiovascular: Denies chest pain or edema. [] GI: Denies abdominal pain, nausea, vomiting, bloody stools or diarrhea. [] : Denies dysuria. [] Musculoskeletal: Denies back pain or joint pain. [] Integument: Itching of the bilateral shoulders, raised bumps on the left forearm, which are now excoriated. Neurologic: Denies headache, focal weakness or sensory changes. [] Endocrine: Denies polyuria or polydipsia. [] Lymphatic: Denies swollen glands. [] Psychiatric: Denies depression or anxiety. [] Current Medications Current Medications Current Medications Medications (Trade) Dose Ordered Sig/Clement Start Time Stop Time Status Last Admin Dose Admin Bacitracin 1 horacio 1X ONCE 01/15/17 07:00 01/15/17 07:01 Diphenhydramine HCl (Benadryl) 25 mg 1X ONCE 01/15/17 07:00 01/15/17 07:01 Allergies Allergies Allergies Coded Allergies Type Severity Reaction Last Updated Verified No Known Drug Allergies 09/06/16 No Physical Exam Physical Exam Constitutional: Well developed, well nourished, no acute distress, non-toxic appearance. [] HENT: Normocephalic, atraumatic, bilateral external ears normal, oropharynx moist, no oral exudates, nose normal. [] Eyes: PERRLA, EOMI, conjunctiva normal, no discharge. [] Neck: Normal range of motion, no tenderness, supple, no stridor. [] Cardiovascular:Heart rate regular rhythm, no murmur, S1, S2, rubs or gallops. [] Lungs & Thorax: Bilateral breath sounds clear to auscultation, no wheezing, rhonchi, rales. No chest or crepitus or tenderness. [] Abdomen: Bowel sounds normal, soft, no tenderness, no masses, no pulsatile masses. [] Skin: Warm, dry, no erythema, no rash. Patient noted to have 2 areas of excoriation located on his left upper extremity, where he has scratched off the top layer skin, he states that previously there were 2 red raised bumps, consistent with possible urticaria based on his description, there is no drainage or discharge from this area, there is no evidence of surrounding cellulitis or other concerning findings. Back: No tenderness, no CVA tenderness. [] Extremities: No tenderness, no cyanosis, no clubbing, ROM intact, no edema. [] Neurologic: Alert and oriented X 3, normal motor function, normal sensory function, no focal deficits noted. [] Psychologic: Affect normal, judgement normal, mood normal. [] Current Patient Data Vital Signs Vital Signs Date Time Temp Pulse Resp B/P (MAP) Pulse Ox O2 Delivery O2 Flow Rate FiO2 01/15/17 05:49 97.7 104 18 99 Room Air 97.7 EKG EKG Not indicated. [] Radiology/Procedures Radiology/Procedures Not indicated. [] Course & Med Decision Making Course & Med Decision Making Pertinent Labs and Imaging studies reviewed. (See chart for details) Patient noted to have 2 areas of excoriation on his left upper extremity, no evidence of surrounding cellulitis, patient states that there were scabs that he "scratched off". Discussed importance of avoiding scratching as this can cause risk of infection. No other lesions identified, no evidence of abscess formation induration or other concerning findings, patient is no other lesions noted. Discussed portions of keeping these areas clean, and covered, use of antibiotic ointment, no indication for systemic] at this time she did discuss with patient. His tetanus is up-to-date. Discussed use of Benadryl, sparingly for itching symptoms, and potential use of topical ointments such as calamine. Discussed importance of following up with his oncologist and his primary care provider for additional evaluation as chronic fatigue, but as patient had blood work performed about a week ago per his report, and is exhibiting no concerning symptoms at this time no indication for repeating blood work at this point. Patient is agreeable this plan, as symptoms of been recurring, I did give him the contact information for Dr. Whyte of dermatology, in order to establish follow-up if lesions do recur after treatment. We also discussed concerning symptoms that prompt return to the ED for additional evaluation. Patient voiced understanding and agreement plan as stated, discharged home in stable condition with plan as above. Dragon Disclaimer Dragon Disclaimer This electronic medical record was generated, in whole or in part, using a voice recognition dictation system. Departure Impression: Primary Impression: Itching Additional Impression: Skin excoriation Disposition: 01 HOME, SELF-CARE Condition: IMPROVED Scripts Diphenhydramine Hcl (BENADRYL) 25 Mg Capsule 25 MG PO PRN Q6-8HRS Y for ITCHING, #12 CAP Prov: THALIA UMANA DO 01/15/17 Problem Qualifiers THALIA UMANA DO Jan 15, 2017 06:44
[2017-01-15] MEDS ORDERED: BACITRACIN TOPICAL OINT 14GM TUBE. TP ONE (07:00)
[2017-01-15] MEDS ORDERED: diphenhydrAMINE HCL 25 MG CAPSULE PO ONE (07:00)
== END 2017-01-15 06:40 | disposition home or self-care (01) ==
LOC: ER 05:29
DX: S40.212A Abrasion of left shoulder, initial encounter (principal); S50.812A Abrasion of left forearm, initial encounter; L29.9 Pruritus, unspecified; F12.10 Cannabis abuse, uncomplicated; X58.XXXA Exposure to other specified factors, initial encounter; Y93.89 Activity, other specified; Y92.89 Other specified places as the place of occurrence of the external cause; Y99.8 Other external cause status
CPT/HCPCS: 99282